=== PATIENT | female | born 1995 | race American Indian/Alaskan Native ===

== ENCOUNTER 2017-01-18 08:07 | Emergency (ER) | payer MEDICAID ==
[2017-01-18 08:52] LABS: Basophils % (Auto) 0.3 % (0.0-1.8); Eosinophils % (Auto) 2.4 % (0.0-4.3); Hematocrit 39.6 % (30.3-42.9); Mean Corpuscular HGB Conc 33 % (30-34); Mean Corpuscular Hemoglobin 28 pg (28-32); Mean Corpuscular Volume 86 fl (79-97); Platelet Count 348 K/mm3 (140-440); Red Blood Count 4.62 M/mm3 (3.65-5.03); Red Cell Distribution Width 12.9 % (13.2-15.2); White Blood Count 11.1 K/mm3 (4.5-11.0)
[2017-01-18 09:08] LABS: Bacteria,Urine 1+ /HPF (Negative); Bilirubin,Urine NEG (Negative); Blood,Urine NEG (Negative); Ketones,Urine NEG (Negative); Leukocyte Esterase,Urine LG (Negative); Mucus,Urine FEW /HPF; Nitrite,Urine NEG (Negative)
[2017-01-18 09:09] LABS: WBC,Urine > 182.0 /HPF (0.0-6.0)
[2017-01-18 09:15] LABS: Alanine Aminotransferase 6 units/L (7-56); Albumin 4.6 g/dL (3.9-5); Albumin/Globulin Ratio 1.3 %; Alkaline Phosphatase 34 units/L (35-129); Anion Gap 18 mmol/L; BUN/Creatinine Ratio 18.75; Blood Urea Nitrogen 15 mg/dL (7-17); Calcium 9.4 mg/dL (8.4-10.2); Carbon Dioxide 23 mmol/L (22-30); Chloride 102.2 mmol/L (98-107); Glucose 93 mg/dL (65-100); Lipase 15 units/L (13-60); Potassium 4.4 mmol/L (3.6-5.0); Sodium 139 mmol/L (137-145); Total Protein 8.1 g/dL (6.3-8.2)
--- NOTE | 2017-01-18 11:59 | Emergency Department Report ---
ED Abdominal Pain HPI - General Chief Complaint: Abdominal Pain Stated Complaint: CYST ON BUTTOCKS Time Seen by Provider: 01/18/17 11:27 Source: patient Mode of arrival: Ambulatory Limitations: No Limitations - History of Present Illness Initial Comments: 21-year-old female who presents to emergency department with complaint of abdominal pain especially with bowel movements. She has some rectal pain and feels that there is a cyst around her anus. Denies fever chills nausea vomiting. She strains when attempting to have bowel movements. MD Complaint: other (rectal pain) -: Gradual Radiation: none Migration to: no migration Consistency: constant Improves With: nothing Worsens With: nothing, bowel movement Associated Symptoms: denies: nausea, vomiting, diarrhea, fever, constipation, dysuria, hematemesis, melena - Related Data Previous Rx's Medication Instructions Recorded Last Taken Type Polymyxin B Sulf/Trimethoprim 1 drop OP Q4H #1 bottle 04/13/13 Unknown Rx [Polytrim Eye Drops 67324faqwj/0.1%] Fluconazole [Diflucan] 150 mg PO ONCE #3 tablet 04/26/13 Unknown Rx Azithromycin(Nf)1% Ophth Soln 1 drops INTRAOCULA QDAY #1 bottle 10/14/13 Unknown Rx [Azasite 1% Ophth Soln] Gentamicin 0.3% Ophth Soln 1 drops OP Q4H #1 bottle 04/11/15 Unknown Rx Ciprofloxacin HCl [Ciprofloxacin 500 mg PO BID #6 tablet 01/18/17 Unknown Rx TAB] Hydrocortisone [Anucort-HC SUPPOS] 25 mg RC BID #30 supp.rect 01/18/17 Unknown Rx Allergies Allergy/AdvReac Type Severity Reaction Status Date / Time Penicillins Allergy Rash Verified 04/13/13 16:46 ED Review of Systems ROS: Stated complaint: CYST ON BUTTOCKS Other details as noted in HPI Constitutional: see HPI. denies: fever, malaise Respiratory: denies: cough, orthopnea Gastrointestinal: other (rectal pain). denies: abdominal pain, nausea Genitourinary: frequency. denies: urgency, dysuria, hematuria ED Past Medical Hx - Past Medical History Previous Medical History?: No - Surgical History Past Surgical History?: No - Family History Family history: no significant - Social History Smoking Status: Never Smoker Substance Use Type: Alcohol - Medications Home Medications: Home Medications Medication Instructions Recorded Confirmed Last Taken Type Polymyxin B Sulf/Trimethoprim 1 drop OP Q4H #1 bottle 04/13/13 Unknown Rx [Polytrim Eye Drops 93484jlmnt/0.1%] Fluconazole [Diflucan] 150 mg PO ONCE #3 tablet 04/26/13 Unknown Rx Azithromycin(Nf)1% Ophth Soln 1 drops INTRAOCULA QDAY #1 bottle 10/14/13 Unknown Rx [Azasite 1% Ophth Soln] Gentamicin 0.3% Ophth Soln 1 drops OP Q4H #1 bottle 04/11/15 Unknown Rx Ciprofloxacin HCl [Ciprofloxacin 500 mg PO BID #6 tablet 01/18/17 Unknown Rx TAB] Hydrocortisone [Anucort-HC SUPPOS] 25 mg RC BID #30 supp.rect 01/18/17 Unknown Rx ED Physical Exam - General Limitations: No Limitations General appearance: alert, in no apparent distress - Head Head exam: Present: atraumatic, normocephalic - Eye Eye exam: Present: normal appearance. Absent: scleral icterus, conjunctival injection - ENT ENT exam: Present: mucous membranes moist - Neck Neck exam: Absent: lymphadenopathy, thyromegaly - GI/Abdominal GI/Abdominal exam: Present: soft, other (Two sizable hemorrhoids). Absent: distended, tenderness, guarding - Extremities Exam Extremities exam: Present: normal inspection - Back Exam Back exam: Absent: CVA tenderness (R), CVA tenderness (L) - Neurological Exam Neurological exam: Present: alert, oriented X3 ED Course Vital Signs 01/18/17 08:16 Temperature 98.5 F Pulse Rate 114 H Blood Pressure 139/89 O2 Sat by Pulse 100 Oximetry ED Medical Decision Making - Lab Data Result diagrams: 01/18/17 08:38 01/18/17 08:38 Laboratory Results - last 24 hr 01/18/17 01/18/17 01/18/17 08:38 08:38 08:40 WBC 11.1 H RBC 4.62 Hgb 13.0 Hct 39.6 MCV 86 MCH 28 MCHC 33 RDW 12.9 L Plt Count 348 Lymph % (Auto) 28.4 [place] % (Auto) 7.7 H Eos % (Auto) 2.4 Baso % (Auto) 0.3 Lymph # 3.1 [place] # 0.9 H Eos # 0.3 Baso # 0.0 Seg Neutrophils % 61.2 Seg Neutrophils # 6.8 Sodium 139 Potassium 4.4 Chloride 102.2 Carbon Dioxide 23 Anion Gap 18 BUN 15 Creatinine 0.8 Estimated GFR > 60 BUN/Creatinine Ratio 18.75 Glucose 93 Calcium 9.4 Total Bilirubin 0.50 AST 10 ALT 6 L Alkaline Phosphatase 34 L Total Protein 8.1 Albumin 4.6 Albumin/Globulin Ratio 1.3 Lipase 15 Urine Color Yellow Urine Turbidity Cloudy Urine pH 6.0 Ur Specific [place] 1.024 Urine Protein 30 mg/dl Urine Glucose (UA) Neg Urine Ketones Neg Urine Blood Neg Urine Nitrite Neg Urine Bilirubin Neg Urine Urobilinogen 2.0 Ur Leukocyte Esterase Lg Urine WBC (Auto) > 182.0 H Urine RBC (Auto) 10.0 U Epithel Cells (Auto) 14.0 H Urine Bacteria (Auto) 1+ Urine WBC Clumps 1+ Ur Transition Epith Cell 12 Urine Mucus Few - Medical Decision Making Patient has a hemorrhoid that is fairly sizable. Plan plan to discharge her with some steroid cream. In addition she does have a urinary tract infection which I'll treat with oral antibiotics for 3 days. Labs are otherwise unremarkable and her exam is unremarkable. Portions of this chart were dictated with dictation software. There may be dictation errors contained within this note. Critical care attestation.: If time is entered above; I have spent that time in minutes in the direct care of this critically ill patient, excluding procedure time. ED Disposition Clinical Impression: UTI (urinary tract infection), Hemorrhoid Disposition: DC-01 TO HOME OR SELFCARE Is pt being admited?: No Condition: Stable Instructions: Abdominal Pain (ED) Prescriptions: Ciprofloxacin HCl [Ciprofloxacin TAB] 500 mg PO BID #6 tablet Hydrocortisone [Anucort-HC SUPPOS] 25 mg RC BID #30 supp.rect Referrals: PRIMARY CARE, [Primary Care Provider] - 3-5 Days
[2017-01-18 13:56] VITALS: BP 130/72
== END 2017-01-18 12:15 | disposition home or self-care (01) ==
LOC: ED 08:07
DX: N39.0 Urinary tract infection, site not specified (principal); K64.9 Unspecified hemorrhoids
CPT/HCPCS: 36415; 80053; 81001; 81025; 83690; 85025; 99283

== ENCOUNTER 2017-07-23 08:25 | Emergency (ER) | payer MEDICAID ==
[2017-07-23 09:03] VITALS: BP 103/68
[2017-07-23 12:20] LABS: Bacteria,Urine 1+ /HPF (Negative); Bilirubin,Urine NEG (Negative); Blood,Urine NEG (Negative); Color,Urine Amber (Yellow); Mucus,Urine 3+ /HPF
[2017-07-23 12:28] LABS: HCG Qualitative,Urine Negative (Negative)
[2017-07-23] MEDS ORDERED: ZOFRAN IV ONE ×2 (12:30→12:57)
[2017-07-23] MEDS ORDERED: PEPCID IV ONE (12:30)
--- NOTE | 2017-07-23 12:40 | Emergency Department Report ---
Blank Doc - Documentation Documentation: Patient is a 22-year-old female who is presenting with nausea and vomiting for the past several days patient states she is unable to keep anything down. Patient also complains of low back discomfort as well as some mild dysuria. On evaluation the patient's urinalysis there are ketones therefore patient will be moved to the treatment room for IV fluids and further assessment by MLP
--- NOTE | 2017-07-23 12:54 | Emergency Department Report ---
ED N/V/D HPI - General Chief complaint: Upper Respiratory Infection Stated complaint: FLU SYMTOMS, EDEMA IN FEET Time Seen by Provider: 07/23/17 12:08 Source: patient Mode of arrival: Ambulatory Limitations: No Limitations - History of Present Illness Initial comments: Patient is a 28-year-old [place] female who is presenting with new onset headaches for the past several days. Patient states that headache is right frontal and she does have tenderness however she denies any congestion and cough cold congestion or flulike symptoms. Patient states that the pain radiates to the right ear and she even has some discomfort in her right leg this morning says it feels as though it's going to sleep. Denies any use of alcohol or any recent new food that would cause nausea and vomiting. Denies any vaginal discharge or bleeding. Last menstrual period is 07/01/2017. Denies any fever or chills. Pain is 8 out of 10 to back or some movement better with rest. Denies any abdominal pain. MD complaint: nausea, vomiting, other (back pain) Onset/Timin -: days(s) Description of Vomiting: food contents Description of Diarrhea: other (none) Associated Abdominal Pain: No Context: other (unknown) Associated Symptoms: loss of appetite, nausea/vomiting, dysuria, other (back pain). denies: myalgias, chest pain, cough, diaphoresis, fever/chills, headaches, malaise, rash, shortness of breath, syncope, weakness - Related Data Previous Rx's Medication Instructions Recorded Last Taken Type Polymyxin B Sulf/Trimethoprim 1 drop OP Q4H #1 bottle 04/13/13 Unknown Rx [Polytrim Eye Drops 20248ilole/0.1%] Fluconazole [Diflucan] 150 mg PO ONCE #3 tablet 04/26/13 Unknown Rx Azithromycin(Nf)1% Ophth Soln 1 drops INTRAOCULA QDAY #1 bottle 10/14/13 Unknown Rx [Azasite 1% Ophth Soln] Gentamicin 0.3% Ophth Soln 1 drops OP Q4H #1 bottle 04/11/15 Unknown Rx Ciprofloxacin HCl [Ciprofloxacin 500 mg PO BID #6 tablet 01/18/17 Unknown Rx TAB] Hydrocortisone [Anucort-HC SUPPOS] 25 mg RC BID #30 supp.rect 01/18/17 Unknown Rx Promethazine [Phenergan TAB] 25 mg PO Q8HR PRN #12 tab 07/23/17 Unknown Rx Sulfamethoxazole/Trimethoprim 1 each PO BID 3 Days #6 tablet 07/23/17 Unknown Rx [Bactrim DS TAB] Allergies Allergy/AdvReac Type Severity Reaction Status Date / Time Penicillins Allergy Rash Verified 04/13/13 16:46 ED Review of Systems ROS: Stated complaint: FLU SYMTOMS, EDEMA IN FEET Other details as noted in HPI Comment: All other systems reviewed and negative Constitutional: no symptoms reported Eyes: denies: eye pain, eye discharge ENT: denies: ear pain, throat pain, congestion Respiratory: no symptoms reported Cardiovascular: edema. denies: chest pain, palpitations, dyspnea on exertion, syncope, paroxysmal nocturnal dyspnea Gastrointestinal: nausea, vomiting. denies: abdominal pain, diarrhea, constipation, hematemesis, melena, hematochezia Genitourinary: dysuria. denies: urgency, frequency, hematuria, discharge, abnormal menses, dyspareunia Musculoskeletal: back pain. denies: joint swelling, arthralgia, myalgia Skin: denies: rash Neurological: denies: headache, weakness, numbness, paresthesias, confusion, abnormal gait, vertigo ED Past Medical Hx - Past Medical History Previous Medical History?: No - Surgical History Past Surgical History?: No - Family History Family history: no significant - Social History Smoking Status: Never Smoker Substance Use Type: None - Medications Home Medications: Home Medications Medication Instructions Recorded Confirmed Last Taken Type Polymyxin B Sulf/Trimethoprim 1 drop OP Q4H #1 bottle 04/13/13 Unknown Rx [Polytrim Eye Drops 44394uxmnj/0.1%] Fluconazole [Diflucan] 150 mg PO ONCE #3 tablet 04/26/13 Unknown Rx Azithromycin(Nf)1% Ophth Soln 1 drops INTRAOCULA QDAY #1 bottle 10/14/13 Unknown Rx [Azasite 1% Ophth Soln] Gentamicin 0.3% Ophth Soln 1 drops OP Q4H #1 bottle 04/11/15 Unknown Rx Ciprofloxacin HCl [Ciprofloxacin 500 mg PO BID #6 tablet 01/18/17 Unknown Rx TAB] Hydrocortisone [Anucort-HC SUPPOS] 25 mg RC BID #30 supp.rect 01/18/17 Unknown Rx Promethazine [Phenergan TAB] 25 mg PO Q8HR PRN #12 tab 02/14/18 Unknown Rx Sulfamethoxazole/Trimethoprim 1 each PO BID 3 Days #6 tablet 07/23/17 Unknown Rx [Bactrim DS TAB] ED Physical Exam - General Limitations: No Limitations General appearance: alert, in no apparent distress - Head Head exam: Present: atraumatic, normocephalic, normal inspection - Eye Eye exam: Present: normal appearance, PERRL, EOMI. Absent: nystagmus, periorbital swelling, periorbital tenderness Pupils: Present: normal accommodation - ENT ENT exam: Present: normal exam, normal orophraynx, mucous membranes moist, TM's normal bilaterally, normal external ear exam - Neck Neck exam: Present: normal inspection, full ROM, other (no C-spine tenderness). Absent: tenderness, meningismus, lymphadenopathy, thyromegaly - Respiratory Respiratory exam: Present: normal lung sounds bilaterally. Absent: respiratory distress, chest wall tenderness, accessory muscle use - Cardiovascular Cardiovascular Exam: Present: normal rhythm, tachycardia, normal heart sounds. Absent: systolic murmur, diastolic murmur - GI/Abdominal GI/Abdominal exam: Present: soft, normal bowel sounds. Absent: distended, tenderness, guarding, rebound, rigid, mass, bruit, pulsatile mass, hernia - Extremities Exam Extremities exam: Present: normal inspection, full ROM, normal capillary refill , other (no clubbing, cyanosis or edema. +2 pulses. Extremities no neurovascular compromise.). Absent: tenderness, pedal edema, joint swelling, calf tenderness - Back Exam Back exam: Present: normal inspection, full ROM, other (ambulance without any difficulties). Absent: tenderness, CVA tenderness (R), CVA tenderness (L), muscle spasm, paraspinal tenderness, vertebral tenderness, rash noted - Neurological Exam Neurological exam: Present: alert, oriented X3, normal gait, reflexes normal. Absent: motor sensory deficit - Psychiatric Psychiatric exam: Present: normal affect, normal mood - Skin Skin exam: Present: warm, dry, intact, normal color. Absent: rash ED Course Vital Signs 07/23/17 07/23/17 08:59 13:54 Temperature 98.4 F Pulse Rate 116 H 100 H Respiratory 20 Rate Blood Pressure 103/68 O2 Sat by Pulse 98 Oximetry Vital Signs 07/23/17 07/23/17 08:59 13:54 Temperature 98.4 F Pulse Rate 116 H 100 H Respiratory 20 Rate Blood Pressure 103/68 O2 Sat by Pulse 98 Oximetry - Reevaluation(s) Reevaluation #1: 07/23/17 13:55 Patient received 2 L of IV fluid emergency room along with 8 mg of Zofran IV and 4 mg increments. She says she felt better able to tolerate oral liquids. ED Medical Decision Making - Lab Data Lab Results 07/23/17 Range/Units 11:05 Urine Color Deb (Yellow) Urine Turbidity Clear (Clear) Urine pH 5.0 (5.0-7.0) Ur Specific [place] 1.033 H (1.003-1.030) Urine Protein 30 mg/dl (Negative) mg/dL Urine Glucose (UA) Neg (Negative) mg/dL Urine Ketones 80 (Negative) mg/dL Urine Blood Neg (Negative) Urine Nitrite Neg (Negative) Urine Bilirubin Neg (Negative) Urine Urobilinogen 2.0 (<2.0) mg/dL Ur Leukocyte Esterase Neg (Negative) Urine WBC (Auto) 2.0 (0.0-6.0) /HPF Urine RBC (Auto) 4.0 (0.0-6.0) /HPF U Epithel Cells (Auto) 15.0 H (0-13.0) /HPF Urine Bacteria (Auto) 1+ (Negative) /HPF Urine Mucus 3+ /HPF Urine HCG, Qual Negative (Negative) Urine culture sent. - Medical Decision Making ED course: Pt here for nausea and vomiting in and flulike symptoms. She does not have a fever. Denies any coughing or respiratory difficulties. Patient urinalysis showed that she had moderate dehydration and she had 1+ bacteria complained of dysuria therefore urine culture sent and pending. Patient will be treated for bacteria and cultures are pending. I discussed diagnosis and treatment plan the patient and she voiced understanding. Patient and tolerated 2 L of IV fluid, Zofran 8 mg IV total. Patient says she felt better and she is tolerating fluids well. test is negative. Patient discharged home in stable condition with prescription for Phenergan and Bactrim DS. Critical care attestation.: If time is entered above; I have spent that time in minutes in the direct care of this critically ill patient, excluding procedure time. ED Disposition Clinical Impression: Dehydration, Dysuria, Bacteriuria Nausea and vomiting Qualifiers: Vomiting type: unspecified Vomiting Intractability: non-intractable Qualified Code(s): R11.2 - Nausea with vomiting, unspecified Disposition: DC-01 TO HOME OR SELFCARE Is pt being admited?: No Does the pt Need Aspirin: No Condition: Stable Instructions: Acute Nausea and Vomiting (ED), Dehydration (ED), Dysuria (ED) Additional Instructions: Please increase her fluid intake to 2-3 L of water and cranberry juice daily See primary care physician in 2 days. If you do not have a primary care physician follow-up with [facility] Please see Bactrim for urinary burning and pain bacteria in the urine Take Phenergan for nausea but please R for operating heavy machinery while taking this medication as a cause drowsiness Prescriptions: Promethazine [Phenergan TAB] 25 mg PO Q8HR PRN #12 tab PRN Reason: Nausea Sulfamethoxazole/Trimethoprim [Bactrim DS TAB] 1 each PO BID 3 Days #6 tablet Referrals: PRIMARY CAREMD [Primary Care Provider] - 07/25/17 [facility] [Outside] - 07/25/17 Forms: Work/School Release Form(ED)
[2017-07-23] MEDS ORDERED: NACL 0.9% 1000 ML 1,000 ML IV ONE (12:59)
[2017-07-23] MEDS ORDERED: D5NS 1,000 ML IV SCH (13:00)
== END 2017-07-23 14:38 | disposition home or self-care (01) ==
LOC: ED 08:25
DX: E86.0 Dehydration (principal); R82.71 Bacteriuria; R11.2 Nausea with vomiting, unspecified; R30.0 Dysuria
CPT/HCPCS: 81001; 81025; 87086; 96361; 96374; 96375; 96376; 99283; J2405; J7030

== ENCOUNTER 2018-02-03 11:16 | Emergency (ER) | payer MEDICAID ==
[2018-02-03 11:24] VITALS: BP 135/90
[2018-02-03 12:33] LABS: Bilirubin,Urine NEG (Negative); Blood,Urine MOD (Negative); Color,Urine Yellow (Yellow); Protein,Urine <15 mg/dL mg/dL (Negative)
[2018-02-03 13:04] LABS: HCG Qualitative,Urine Negative (Negative)
--- NOTE | 2018-02-03 17:19 | Emergency Department Report ---
ED General Adult HPI - General Chief complaint: Urogenital-Female Stated complaint: BLOOD IN URINE Time Seen by Provider: 02/03/18 17:03 Source: patient Mode of arrival: Ambulatory Limitations: No Limitations - History of Present Illness Initial comments: She presents to emergency department with a chief complaint of burning with urination for the last 2 months. Patient states recently she noticed that she' s had blood in her urine as well. Patient denies any vaginal discharge or concern for STDs. Patient has no other complaints -: Gradual Location: pelvis Radiation: non-radiation Severity scale (0 -10): 2 Quality: burning Consistency: constant Improves with: none Worsens with: none Associated Symptoms: denies other symptoms Treatments Prior to Arrival: none - Related Data Previous Rx's Medication Instructions Recorded Last Taken Type Polymyxin B Sulf/Trimethoprim 1 drop OP Q4H #1 bottle 04/13/13 Unknown Rx [Polytrim Eye Drops 41574fturw/0.1%] Fluconazole [Diflucan] 150 mg PO ONCE #3 tablet 04/26/13 Unknown Rx Azithromycin(Nf)1% Ophth Soln 1 drops INTRAOCULA QDAY #1 bottle 10/14/13 Unknown Rx [Azasite 1% Ophth Soln] Gentamicin 0.3% Ophth Soln 1 drops OP Q4H #1 bottle 04/11/15 Unknown Rx Ciprofloxacin HCl [Ciprofloxacin 500 mg PO BID #6 tablet 01/18/17 Unknown Rx TAB] Hydrocortisone [Anucort-HC SUPPOS] 25 mg RC BID #30 supp.rect 01/18/17 Unknown Rx Promethazine [Phenergan TAB] 25 mg PO Q8HR PRN #12 tab 07/23/17 Unknown Rx Sulfamethoxazole/Trimethoprim 1 each PO BID 3 Days #6 tablet 07/23/17 Unknown Rx [Bactrim DS TAB] Phenazopyridine [Pyridium] 200 mg PO BID #6 tab 02/03/18 Unknown Rx Sulfamethoxazole/Trimethoprim 1 each PO BID #14 tablet 02/03/18 Unknown Rx [Bactrim DS TAB] Allergies Allergy/AdvReac Type Severity Reaction Status Date / Time Penicillins Allergy Rash Verified 02/03/18 11:23 ED Review of Systems ROS: Stated complaint: BLOOD IN URINE Other details as noted in HPI Comment: All other systems reviewed and negative Constitutional: denies: chills, fever Eyes: denies: eye pain, eye discharge, vision change ENT: denies: ear pain, throat pain Respiratory: denies: cough, shortness of breath, wheezing Cardiovascular: denies: chest pain, palpitations Endocrine: no symptoms reported Gastrointestinal: denies: abdominal pain, nausea, diarrhea Genitourinary: dysuria. denies: urgency, discharge Musculoskeletal: denies: back pain, joint swelling, arthralgia Skin: denies: rash, lesions Neurological: denies: headache, weakness, paresthesias Psychiatric: denies: anxiety, depression Hematological/Lymphatic: denies: easy bleeding, easy bruising ED Past Medical Hx - Past Medical History Previous Medical History?: No - Surgical History Past Surgical History?: No - Social History Smoking Status: Never Smoker Substance Use Type: None - Medications Home Medications: Home Medications Medication Instructions Recorded Confirmed Last Taken Type Polymyxin B Sulf/Trimethoprim 1 drop OP Q4H #1 bottle 04/13/13 Unknown Rx [Polytrim Eye Drops 63587ubjda/0.1%] Fluconazole [Diflucan] 150 mg PO ONCE #3 tablet 04/26/13 Unknown Rx Azithromycin(Nf)1% Ophth Soln 1 drops INTRAOCULA QDAY #1 bottle 10/14/13 Unknown Rx [Azasite 1% Ophth Soln] Gentamicin 0.3% Ophth Soln 1 drops OP Q4H #1 bottle 04/11/15 Unknown Rx Ciprofloxacin HCl [Ciprofloxacin 500 mg PO BID #6 tablet 01/18/17 Unknown Rx TAB] Hydrocortisone [Anucort-HC SUPPOS] 25 mg RC BID #30 supp.rect 01/18/17 Unknown Rx Promethazine [Phenergan TAB] 25 mg PO Q8HR PRN #12 tab 07/23/17 Unknown Rx Sulfamethoxazole/Trimethoprim 1 each PO BID 3 Days #6 tablet 07/23/17 Unknown Rx [Bactrim DS TAB] Phenazopyridine [Pyridium] 200 mg PO BID #6 tab 02/03/18 Unknown Rx Sulfamethoxazole/Trimethoprim 1 each PO BID #14 tablet 02/03/18 Unknown Rx [Bactrim DS TAB] ED Physical Exam - General Limitations: No Limitations General appearance: alert, in no apparent distress - Head Head exam: Present: atraumatic, normocephalic - Eye Eye exam: Present: normal appearance - ENT ENT exam: Present: mucous membranes moist - Neck Neck exam: Present: normal inspection - Respiratory Respiratory exam: Present: normal lung sounds bilaterally. Absent: respiratory distress, wheezes, rales, rhonchi - Cardiovascular Cardiovascular Exam: Present: regular rate, normal rhythm. Absent: systolic murmur, diastolic murmur, rubs, gallop - GI/Abdominal GI/Abdominal exam: Present: soft, normal bowel sounds. Absent: distended, tenderness - Extremities Exam Extremities exam: Present: normal inspection - Back Exam Back exam: Present: normal inspection - Neurological Exam Neurological exam: Present: alert, oriented X3, CN II-XII intact. Absent: motor sensory deficit - Psychiatric Psychiatric exam: Present: normal affect, normal mood - Skin Skin exam: Present: warm, dry, intact, normal color. Absent: rash ED Course Vital Signs 02/03/18 11:23 Temperature 98.7 F Pulse Rate 68 Respiratory 16 Rate Blood Pressure 135/90 O2 Sat by Pulse 100 Oximetry ED Medical Decision Making - Medical Decision Making Stress results with patient and her mother Critical care attestation.: If time is entered above; I have spent that time in minutes in the direct care of this critically ill patient, excluding procedure time. ED Disposition Clinical Impression: UTI (urinary tract infection) Disposition: - TO HOME OR SELFCARE Is pt being admited?: No Does the pt Need Aspirin: No Condition: Stable Instructions: Urinary Tract Infection in Women (ED) Prescriptions: Phenazopyridine [Pyridium] 200 mg PO BID #6 tab Sulfamethoxazole/Trimethoprim [Bactrim DS TAB] 1 each PO BID #14 tablet Referrals: PRIMARY CARE, [Primary Care Provider] - 3-5 Days [facility] [Outside] - 3-5 Days Time of Disposition: 17:19
== END 2018-02-03 17:48 | disposition home or self-care (01) ==
LOC: ED 11:16
DX: N39.0 Urinary tract infection, site not specified (principal); Z88.0 Allergy status to penicillin
CPT/HCPCS: 81001; 81025; 99283

== ENCOUNTER 2018-12-12 16:25 | Emergency (ER) | payer MEDICAID ==
--- NOTE | 2018-12-12 16:50 | Event Note ---
ED Screening Note Date of service: 12/12/18 Time: 16:47 ED Screening Note: This is a 23 y.o. F. that presents with nausea and vomiting x 1 month. LMP 10/28/2018, G0 This initial assessment/diagnostic orders/clinical plan/treatment(s) is/are subject to change based on patients health status, clinical progression and re- assessment by fellow clinical providers in the ED. Further treatment and workup at subsequent clinical providers discretion. Patient/guardian urged not to elope from the ED as their condition may be serious if not clinically assessed and managed. Initial orders include: labs acc for further evaluation.
[2018-12-12 17:37] LABS: Bacteria,Urine 1+ /HPF (Negative); Bilirubin,Urine NEG (Negative); Blood,Urine NEG (Negative); Color,Urine Yellow (Yellow); HCG Qualitative,Urine Positive (Negative); Mucus,Urine FEW /HPF; Urobilinogen,Urine < 2.0 mg/dL (<2.0)
[2018-12-12] MEDS ORDERED: ZOFRAN IV ONE (19:04)
[2018-12-12] MEDS ORDERED: NACL 0.9% 1000 ML 1,000 ML IV ONE (19:04)
--- NOTE | 2018-12-12 19:06 | Emergency Department Report ---
ED N/V/D HPI - General Chief complaint: Nausea/Vomiting/Diarrhea Stated complaint: POSS Time Seen by Provider: 12/12/18 16:46 Source: patient Mode of arrival: Ambulatory Limitations: No Limitations - History of Present Illness Initial comments: This is 23-year-old female here report that she is having nausea and vomiting since last month. She denies any abdominal pain and last menstrual period was in October 2018. She is here wanting today she is . She says she is unable to keep down any liquids. Denies any vaginal bleeding or discharge. Denies any fever or chills or urinary burning, frequency or urgency. Denies any back pain. MD complaint: nausea, vomiting Onset/Timin -: month(s) Description of Vomiting: food contents Associated Abdominal Pain: No Pain Scale: 0 Context: other (reports possible ) Associated Symptoms: loss of appetite, nausea/vomiting. denies: myalgias, chest pain, cough, diaphoresis, fever/chills, headaches, malaise, rash, dysuria, shortness of breath, syncope, weakness - Related Data Previous Rx's Medication Instructions Recorded Last Taken Type Polymyxin B Sulf/Trimethoprim 1 drop OP Q4H #1 bottle 04/13/13 Unknown Rx [Polytrim Eye Drops 52142xamml/0.1%] Fluconazole [Diflucan] 150 mg PO ONCE #3 tablet 04/26/13 Unknown Rx Azithromycin(Nf)1% Ophth Soln 1 drops INTRAOCULA QDAY #1 bottle 10/14/13 Unknown Rx [Azasite 1% Ophth Soln] Gentamicin 0.3% Ophth Soln 1 drops OP Q4H #1 bottle 04/11/15 Unknown Rx Ciprofloxacin HCl [Ciprofloxacin 500 mg PO BID #6 tablet 01/18/17 Unknown Rx TAB] Hydrocortisone [Anucort-HC SUPPOS] 25 mg RC BID #30 supp.rect 01/18/17 Unknown Rx Promethazine [Phenergan TAB] 25 mg PO Q8HR PRN #12 tab 07/23/17 Unknown Rx Sulfamethoxazole/Trimethoprim 1 each PO BID 3 Days #6 tablet 07/23/17 Unknown Rx [Bactrim DS TAB] Phenazopyridine [Pyridium] 200 mg PO BID #6 tab 02/03/18 Unknown Rx Sulfamethoxazole/Trimethoprim 1 each PO BID #14 tablet 02/03/18 Unknown Rx [Bactrim DS TAB] Nitrofurantoin Wallace/M-Cryst 100 mg PO Q12HR 7 Days #14 capsule 12/12/18 Unknown Rx [Macrobid CAP] Vit-Fe Fumar-FA [ 1 tab PO QDAY 30 Days #30 tablet 12/12/18 Unknown Rx Vitamin] Allergies Allergy/AdvReac Type Severity Reaction Status Date / Time Penicillins Allergy Rash Verified 12/12/18 16:34 ED Review of Systems ROS: Stated complaint: POSS Other details as noted in HPI Constitutional: denies: chills, fever ENT: denies: throat pain, congestion Respiratory: denies: cough, shortness of breath, wheezing Cardiovascular: denies: chest pain, palpitations, dyspnea on exertion Gastrointestinal: nausea, vomiting. denies: abdominal pain, diarrhea, constipation, hematemesis, melena, hematochezia Genitourinary: abnormal menses. denies: urgency, dysuria, frequency, hematuria, discharge, dyspareunia Skin: denies: rash Neurological: denies: headache, weakness, abnormal gait ED Past Medical Hx - Past Medical History Previous Medical History?: No - Surgical History Past Surgical History?: No - Family History Family history: no significant - Social History Smoking Status: Never Smoker Substance Use Type: None - Medications Home Medications: Home Medications Medication Instructions Recorded Confirmed Last Taken Type Polymyxin B Sulf/Trimethoprim 1 drop OP Q4H #1 bottle 04/13/13 Unknown Rx [Polytrim Eye Drops 75391bhsmf/0.1%] Fluconazole [Diflucan] 150 mg PO ONCE #3 tablet 04/26/13 Unknown Rx Azithromycin(Nf)1% Ophth Soln 1 drops INTRAOCULA QDAY #1 bottle 10/14/13 Unknown Rx [Azasite 1% Ophth Soln] Gentamicin 0.3% Ophth Soln 1 drops OP Q4H #1 bottle 04/11/15 Unknown Rx Ciprofloxacin HCl [Ciprofloxacin 500 mg PO BID #6 tablet 01/18/17 Unknown Rx TAB] Hydrocortisone [Anucort-HC SUPPOS] 25 mg RC BID #30 supp.rect 01/18/17 Unknown Rx Promethazine [Phenergan TAB] 25 mg PO Q8HR PRN #12 tab 07/23/17 Unknown Rx Sulfamethoxazole/Trimethoprim 1 each PO BID 3 Days #6 tablet 07/23/17 Unknown Rx [Bactrim DS TAB] Phenazopyridine [Pyridium] 200 mg PO BID #6 tab 02/03/18 Unknown Rx Sulfamethoxazole/Trimethoprim 1 each PO BID #14 tablet 02/03/18 Unknown Rx [Bactrim DS TAB] Nitrofurantoin Wallace/M-Cryst 100 mg PO Q12HR 7 Days #14 capsule 12/12/18 Unknown Rx [Macrobid CAP] Vit-Fe Fumar-FA [ 1 tab PO QDAY 30 Days #30 tablet 12/12/18 Unknown Rx Vitamin] ED Physical Exam - General Limitations: No Limitations General appearance: alert, in no apparent distress - Head Head exam: Present: atraumatic, normocephalic - Eye Eye exam: Present: normal appearance, PERRL, EOMI - ENT ENT exam: Present: normal exam, mucous membranes dry, TM's normal bilaterally - Neck Neck exam: Present: normal inspection, full ROM - Respiratory Respiratory exam: Present: normal lung sounds bilaterally. Absent: respiratory distress - Cardiovascular Cardiovascular Exam: Present: regular rate, normal rhythm, normal heart sounds - GI/Abdominal GI/Abdominal exam: Present: soft, normal bowel sounds. Absent: distended, tenderness, guarding, rebound, rigid - Extremities Exam Extremities exam: Present: normal inspection, full ROM, other (No cce. + 2 pulses in all extremities, no neurovascular compromise). Absent: pedal edema - Back Exam Back exam: Present: normal inspection, full ROM - Neurological Exam Neurological exam: Present: alert, oriented X3, normal gait - Psychiatric Psychiatric exam: Present: normal affect, normal mood - Skin Skin exam: Present: warm, dry, intact, normal color. Absent: rash ED Course Vital Signs 12/12/18 16:38 Temperature 98.3 F Pulse Rate 87 Respiratory 18 Rate Blood Pressure 137/74 O2 Sat by Pulse 95 Oximetry - Reevaluation(s) Reevaluation #1: 12/12/18 21:38 patient urinalysis positive for urinary tract infection, dehydration, positive . Patient was given 1 L normal saline in emergency room along with 4 mg of Zofran IV and her nausea is relieved. She is able to tolerate by mouth fluids. She is updated on her laboratory results. ED Medical Decision Making - Lab Data Lab Results 12/12/18 Range/Units 17:15 Urine Color Yellow (Yellow) Urine Turbidity Slightly-cloudy (Clear) Urine pH 6.0 (5.0-7.0) Ur Specific Gonzales 1.026 (1.003-1.030) Urine Protein 30 mg/dl (Negative) mg/dL Urine Glucose (UA) Neg (Negative) mg/dL Urine Ketones 80 (Negative) mg/dL Urine Blood Neg (Negative) Urine Nitrite Neg (Negative) Urine Bilirubin Neg (Negative) Urine Urobilinogen < 2.0 (<2.0) mg/dL Ur Leukocyte Esterase Lg (Negative) Urine WBC (Auto) 10.0 H (0.0-6.0) /HPF Urine RBC (Auto) 5.0 (0.0-6.0) /HPF U Epithel Cells (Auto) 17.0 H (0-13.0) /HPF Urine Bacteria (Auto) 1+ (Negative) /HPF Urine Mucus Few /HPF Urine HCG, Qual Positive A (Negative) Urine culture pending - Differential Diagnosis enteritis, nausea and vomiting in , UTI Critical care attestation.: If time is entered above; I have spent that time in minutes in the direct care of this critically ill patient, excluding procedure time. ED Disposition Clinical Impression: Nausea and vomiting during , Dehydration Acute cystitis during Qualifiers: Trimester: unspecified trimester Qualified Code(s): O23.10 - Infections of bladder in , unspecified trimester Disposition: DC-01 TO HOME OR SELFCARE Is pt being admited?: No Does the pt Need Aspirin: No Condition: Stable Instructions: Urinary Tract Infection in Women (ED), Acute Nausea and Vomiting (ED), Dehydration (ED), (ED) Additional Instructions: Please follow up with [facility] in 2 days for care. Take vitamin as prescribed Increase her fluid intake Take Macrobid for urinary tract infection If you condition worsens to include abdominal pain, fever or chills, continue nausea and vomiting, vaginal bleeding, return to the emergency room Prescriptions: Nitrofurantoin Wallace/M-Cryst [Macrobid CAP] 100 mg PO Q12HR 7 Days #14 capsule Vit-Fe Fumar-FA [ Vitamin] 1 tab PO QDAY 30 Days #30 tablet Referrals: [facility] [Provider Group] - 12/14/18 [facility]MI[facility] BLAYNENEWHALL MD KARINA [Primary Care Provider] - 12/14/18 Forms: Work/School Release Form(ED)
[2018-12-12 21:58] VITALS: BP 115/68
== END 2018-12-12 21:57 | disposition home or self-care (01) ==
LOC: ED 16:25
DX: O23.11 Infections of bladder in pregnancy, first trimester (principal); O26.891 Other specified pregnancy related conditions, first trimester; E86.0 Dehydration; Z3A.00 Weeks of gestation of pregnancy not specified; Z79.899 Other long term (current) drug therapy; Z88.0 Allergy status to penicillin
CPT/HCPCS: 81001; 81025; 87086; 96361; 96374; 99283; J2405; J7030

== ENCOUNTER 2019-01-13 18:32 | Emergency (ER) | payer MEDICAID ==
--- NOTE | 2019-01-13 19:40 | Emergency Department Report ---
Blank Doc - Documentation Documentation: This is a 23-year-old female that presents with right sided facial abscess. This initial assessment/diagnostic orders/clinical plan/treatment(s) is/are subject to change based on patient's health status, clinical progression and re- assessment by fellow clinical providers in the ED. Further treatment and workup at subsequent clinical providers discretion. Patient/guardians urged not to elope from the ED as their condition may be serious if not clinically assessed and managed. Initial orders include: 1- Patient sent to [facility] for further evaluation and treatment
[2019-01-13] MEDS ORDERED: XYLOCAINE 1% MPF 5 mL INFILTRATI ONE (21:25)
[2019-01-13] MEDS ORDERED: IBUPROFEN PO ONE (21:25)
[2019-01-13] MEDS ORDERED: VIBRAMYCIN PO ONE (21:26)
[2019-01-13] MEDS ORDERED: ZOFRAN ODT PO ONE (21:26)
[2019-01-13] MEDS ORDERED: TYLENOL #3 PO ONE (21:26)
--- NOTE | 2019-01-13 23:09 | Emergency Department Report ---
- General Chief complaint: Skin/Abscess/Foreign Body Stated complaint: BOIL ON UNDER (L) EYE Time Seen by Provider: 01/13/19 19:40 Source: patient Mode of arrival: Ambulatory Limitations: No Limitations - History of Present Illness Initial comments: Patient is a 23-year-old -[place] female with a history of chronic facial acne rash presents to the ED with painful swollen fluctuant right infraorbital rash for the last 1 week, worse in the last 2 days. Patient denies fever, chills, dizziness, headache, change in vision, nausea, vomiting, neck pain, abdominal pain, sore throat, traumatic injury or chest pain and shortness of breath. MD complaint: rash (FACIAL), abscess/boil (FACIAL) -: Gradual, week(s) (1) Tetanus Up to Date: yes Location: face Severity: moderate Severity scale (0 -10): 5 Quality: burning, aching, sharp Consistency: constant Improves with: none Worsens with: none Context: none Associated symptoms: denies other symptoms Treatments Prior to Arrival: none - Related Data Previous Rx's Medication Instructions Recorded Last Taken Type Polymyxin B Sulf/Trimethoprim 1 drop OP Q4H #1 bottle 04/13/13 Unknown Rx [Polytrim Eye Drops 47556rvzvm/0.1%] Fluconazole [Diflucan] 150 mg PO ONCE #3 tablet 04/26/13 Unknown Rx Azithromycin(Nf)1% Ophth Soln 1 drops INTRAOCULA QDAY #1 bottle 10/14/13 Unknown Rx [Azasite 1% Ophth Soln] Gentamicin 0.3% Ophth Soln 1 drops OP Q4H #1 bottle 04/11/15 Unknown Rx Ciprofloxacin HCl [Ciprofloxacin 500 mg PO BID #6 tablet 01/18/17 Unknown Rx TAB] Hydrocortisone [Anucort-HC SUPPOS] 25 mg RC BID #30 supp.rect 01/18/17 Unknown Rx Promethazine [Phenergan TAB] 25 mg PO Q8HR PRN #12 tab 07/23/17 Unknown Rx Sulfamethoxazole/Trimethoprim 1 each PO BID 3 Days #6 tablet 07/23/17 Unknown Rx [Bactrim DS TAB] Phenazopyridine [Pyridium] 200 mg PO BID #6 tab 02/03/18 Unknown Rx Sulfamethoxazole/Trimethoprim 1 each PO BID #14 tablet 02/03/18 Unknown Rx [Bactrim DS TAB] Nitrofurantoin Izard/M-Cryst 100 mg PO Q12HR 7 Days #14 capsule 12/12/18 Unknown Rx [Macrobid CAP] Vit-Fe Fumar-FA [ 1 tab PO QDAY 30 Days #30 tablet 12/12/18 Unknown Rx Vitamin] Benzoyl Peroxide [Acne Medication] 1 applicator TP Q12H #30 ml 01/13/19 Unknown Rx DOXYCYCLINE Hyclate [Vibramycin 100 mg PO Q12HR #28 capsule 01/13/19 Unknown Rx CAP] Ibuprofen [Motrin] 400 mg PO Q8H PRN #20 tablet 01/13/19 Unknown Rx Allergies Allergy/AdvReac Type Severity Reaction Status Date / Time Penicillins Allergy Rash Verified 12/12/18 16:34 Abscess Boil HPI - HPI Chief Complaint: Skin/Abscess/Foreign Body Stated Complaint: BOIL ON UNDER (L) EYE Time Seen by Provider: 01/13/19 19:40 Duration: 1 Week Location: Other (FACE) History: Yes Pain, No Fever, No Purulent Drainage, No Numbness, No Foreign Body, No Previous History, No Insect Bite HPI: Patient is a 23-year-old -[place] female with a history of chronic facial acne rash presents to the ED with painful swollen fluctuant right infraorbital rash for the last 1 week, worse in the last 2 days. Patient denies fever, chills, dizziness, headache, change in vision, nausea, vomiting, neck pain, abdominal pain, sore throat, traumatic injury or chest pain and shortness of breath Home Medications: Previous Rx's Medication Instructions Recorded Last Taken Type Polymyxin B Sulf/Trimethoprim 1 drop OP Q4H #1 bottle 04/13/13 Unknown Rx [Polytrim Eye Drops 51677jwufp/0.1%] Fluconazole [Diflucan] 150 mg PO ONCE #3 tablet 04/26/13 Unknown Rx Azithromycin(Nf)1% Ophth Soln 1 drops INTRAOCULA QDAY #1 bottle 10/14/13 Unknown Rx [Azasite 1% Ophth Soln] Gentamicin 0.3% Ophth Soln 1 drops OP Q4H #1 bottle 04/11/15 Unknown Rx Ciprofloxacin HCl [Ciprofloxacin 500 mg PO BID #6 tablet 01/18/17 Unknown Rx TAB] Hydrocortisone [Anucort-HC SUPPOS] 25 mg RC BID #30 supp.rect 01/18/17 Unknown Rx Promethazine [Phenergan TAB] 25 mg PO Q8HR PRN #12 tab 07/23/17 Unknown Rx Sulfamethoxazole/Trimethoprim 1 each PO BID 3 Days #6 tablet 07/23/17 Unknown Rx [Bactrim DS TAB] Phenazopyridine [Pyridium] 200 mg PO BID #6 tab 02/03/18 Unknown Rx Sulfamethoxazole/Trimethoprim 1 each PO BID #14 tablet 02/03/18 Unknown Rx [Bactrim DS TAB] Nitrofurantoin Izard/M-Cryst 100 mg PO Q12HR 7 Days #14 capsule 12/12/18 Unknown Rx [Macrobid CAP] Vit-Fe Fumar-FA [ 1 tab PO QDAY 30 Days #30 tablet 12/12/18 Unknown Rx Vitamin] Benzoyl Peroxide [Acne Medication] 1 applicator TP Q12H #30 ml 01/13/19 Unknown Rx DOXYCYCLINE Hyclate [Vibramycin 100 mg PO Q12HR #28 capsule 01/13/19 Unknown Rx CAP] Ibuprofen [Motrin] 400 mg PO Q8H PRN #20 tablet 01/13/19 Unknown Rx Allergies/Adverse Reactions: Allergies Allergy/AdvReac Type Severity Reaction Status Date / Time Penicillins Allergy Rash Verified 12/12/18 16:34 ED Review of Systems ROS: Stated complaint: BOIL ON UNDER (L) EYE Other details as noted in HPI Constitutional: denies: chills, fever Eyes: denies: eye pain, eye discharge, vision change ENT: other (right infraorbital swollen fluctuant painful rash with mul;tiple facial acne and follicular rashes). denies: ear pain, throat pain Respiratory: denies: cough, shortness of breath, wheezing Cardiovascular: denies: chest pain, palpitations Endocrine: no symptoms reported. denies: excessive sweating, flushing, increased hunger, increased thirst, increased urine Gastrointestinal: denies: abdominal pain, nausea, diarrhea Genitourinary: denies: urgency, dysuria, discharge Musculoskeletal: denies: back pain, joint swelling, arthralgia Skin: rash (erythematous maculoapular fluctuant rash on right infraorbital area with multiple acne rashes), change in color. denies: lesions Neurological: denies: headache, weakness, paresthesias Psychiatric: denies: anxiety, depression Hematological/Lymphatic: denies: easy bleeding, easy bruising ED Past Medical Hx - Past Medical History Previous Medical History?: No - Surgical History Past Surgical History?: No - Social History Smoking Status: Never Smoker Substance Use Type: None - Medications Home Medications: Home Medications Medication Instructions Recorded Confirmed Last Taken Type Polymyxin B Sulf/Trimethoprim 1 drop OP Q4H #1 bottle 04/13/13 Unknown Rx [Polytrim Eye Drops 57614mayzg/0.1%] Fluconazole [Diflucan] 150 mg PO ONCE #3 tablet 04/26/13 Unknown Rx Azithromycin(Nf)1% Ophth Soln 1 drops INTRAOCULA QDAY #1 bottle 10/14/13 Unknown Rx [Azasite 1% Ophth Soln] Gentamicin 0.3% Ophth Soln 1 drops OP Q4H #1 bottle 04/11/15 Unknown Rx Ciprofloxacin HCl [Ciprofloxacin 500 mg PO BID #6 tablet 01/18/17 Unknown Rx TAB] Hydrocortisone [Anucort-HC SUPPOS] 25 mg RC BID #30 supp.rect 01/18/17 Unknown Rx Promethazine [Phenergan TAB] 25 mg PO Q8HR PRN #12 tab 07/23/17 Unknown Rx Sulfamethoxazole/Trimethoprim 1 each PO BID 3 Days #6 tablet 07/23/17 Unknown Rx [Bactrim DS TAB] Phenazopyridine [Pyridium] 200 mg PO BID #6 tab 02/03/18 Unknown Rx Sulfamethoxazole/Trimethoprim 1 each PO BID #14 tablet 02/03/18 Unknown Rx [Bactrim DS TAB] Nitrofurantoin Izard/M-Cryst 100 mg PO Q12HR 7 Days #14 capsule 12/12/18 Unknown Rx [Macrobid CAP] Vit-Fe Fumar-FA [ 1 tab PO QDAY 30 Days #30 tablet 12/12/18 Unknown Rx Vitamin] Benzoyl Peroxide [Acne Medication] 1 applicator TP Q12H #30 ml 01/13/19 Unknown Rx DOXYCYCLINE Hyclate [Vibramycin 100 mg PO Q12HR #28 capsule 01/13/19 Unknown Rx CAP] Ibuprofen [Motrin] 400 mg PO Q8H PRN #20 tablet 01/13/19 Unknown Rx ED Physical Exam - General Limitations: No Limitations General appearance: alert, in no apparent distress - Head Head exam: Present: atraumatic, normocephalic - Eye Eye exam: Present: normal appearance, PERRL, EOMI Pupils: Present: normal accommodation - ENT ENT exam: Present: normal exam, normal orophraynx, mucous membranes moist, TM's normal bilaterally, normal external ear exam, other (Right infraorbital swollen mildly erythematous rash with fluctuance) - Neck Neck exam: Present: normal inspection, full ROM. Absent: tenderness, meningismus, lymphadenopathy, thyromegaly - Respiratory Respiratory exam: Present: normal lung sounds bilaterally. Absent: respiratory distress, wheezes, chest wall tenderness, decreased breath sounds, prolonged expiratory - Cardiovascular Cardiovascular Exam: Present: normal rhythm, tachycardia, normal heart sounds. Absent: systolic murmur, diastolic murmur, rubs, gallop - GI/Abdominal GI/Abdominal exam: Present: soft, normal bowel sounds. Absent: distended, tenderness, rebound, hyperactive bowel sounds, hypoactive bowel sounds - Rectal Rectal exam: Present: deferred - Extremities Exam Extremities exam: Present: normal inspection, full ROM, normal capillary refill - Back Exam Back exam: Present: normal inspection, full ROM. Absent: tenderness, CVA tenderness (R), CVA tenderness (L), muscle spasm, paraspinal tenderness - Neurological Exam Neurological exam: Present: alert, oriented X3, CN II-XII intact, normal gait, reflexes normal - Psychiatric Psychiatric exam: Present: normal affect, normal mood - Skin Skin exam: Present: warm, dry, intact, normal color, rash (Right infraorbital fluctuant mildy erythematous rash; multiple acne rashes on face diffusely) ED Course Vital Signs 01/13/19 19:40 Temperature 98.0 F Pulse Rate 116 H Respiratory 18 Rate Blood Pressure 119/84 O2 Sat by Pulse 100 Oximetry - Reevaluation(s) Reevaluation #1: 01/13/19 23:15 Patient is alert and oriented 3 and is not in distress, but is tachycardic in triage. Patient was treated for pain and given oral antibiotics and 80. The rash on the infra orbital area was drained with needle aspiration and area dressed appropriately after cleaning it. Patient tolerated the procedure well and was discharged home on antibiotics and pain medications and advised to follow-up with her primary care physician in 5-7 days for reevaluation or return to the ED immediately if symptoms get worse. - I & D Right Anterior Face Type of Procedure: Simple Site: right infraorbital area Blade Size: Needle aspiration I & D Procedure: betadine prep Progress: Patient tolerated procedure well ED Medical Decision Making - Medical Decision Making Patient is alert and oriented 3 and is not in distress, but is tachycardic in triage. Patient was treated for pain and given oral antibiotics and 80. The rash on the infra orbital area was drained with needle aspiration and area dressed appropriately after cleaning it. Patient tolerated the procedure well and was discharged home on antibiotics and pain medications and advised to follow-up with her primary care physician in 5-7 days for reevaluation or return to the ED immediately if symptoms get worse. - Differential Diagnosis acute folliculitis; Acne vulgaris; facial cellulitis Critical care attestation.: If time is entered above; I have spent that time in minutes in the direct care of this critically ill patient, excluding procedure time. ED Disposition Clinical Impression: Acne erythematosa, Acute folliculitis Disposition: TO HOME OR SELFCARE Is pt being admited?: No Does the pt Need Aspirin: No Condition: Stable Instructions: Folliculitis (ED), Acne (ED) Additional Instructions: Take medications with food, drink plenty of fluids and follow-up with your primary care physician in 7-10 days for reevaluation. Return to the ED immediately if symptoms get worse. Prescriptions: Benzoyl Peroxide [Acne Medication] 1 applicator TP Q12H #30 ml Ibuprofen [Motrin] 400 mg PO Q8H PRN #20 tablet PRN Reason: Pain , Severe (7-10) DOXYCYCLINE Hyclate [Vibramycin CAP] 100 mg PO Q12HR #28 capsule Referrals: CHAD PEARL MD [Primary Care Provider] - 3-5 Days [facility] [Outside] - 3-5 Days Time of Disposition: 23:05 Print Language: GREENLANDIC
[2019-01-13 23:34] VITALS: BP 125/83
== END 2019-01-13 23:40 | disposition home or self-care (01) ==
LOC: ED 18:32
DX: L70.0 Acne vulgaris (principal); L73.9 Follicular disorder, unspecified; Z88.0 Allergy status to penicillin; Z79.1 Long term (current) use of non-steroidal anti-inflammatories (NSAID); Z79.899 Other long term (current) drug therapy
CPT/HCPCS: Q0162

== ENCOUNTER 2019-08-09 09:37 | Outpatient (CLI) | payer MEDICAID ==
[2019-08-09 12:24] VITALS: BP 121/58
--- NOTE | 2019-08-09 13:47 | Ultrasound Report ---
ULTRASOUND BIOPHYSICAL PROFILE INDICATION: no movement. COMPARISON: None available. FINDINGS: heart rate is 152 beats per minute. breathing movement = 2 Gross body movement = 2 tone = 2 Qualitative amniotic fluid volume = 2 IMPRESSION: biophysical profile = 01/14 Signer Name: Devaughn Alvarez Jr, MD Signed: 08/09/2019 1:43 PM Workstation Name: [id number]
== END 2019-08-09 12:33 | disposition home or self-care (01) ==
LOC: TRG 09:37
PROVIDERS: ATTEND Obstetrics & Gynecology
DX: O36.4XX0 Maternal care for intrauterine death, not applicable or unspecified (principal); Z3A.40 40 weeks gestation of pregnancy
CPT/HCPCS: 59025; 76819

== ENCOUNTER 2019-08-21 14:04 | Emergency (ER) | payer MEDICAID ==
[2019-08-21 14:12] VITALS: BP 160/99
[2019-08-21 14:58] LABS: Basophils % (Auto) 0.1 % (0.0-1.8); Eosinophils # (Auto) 0.3 K/mm3 (0.0-0.4); Hematocrit 23.4 % (30.3-42.9); Hemoglobin 7.9 gm/dl (10.1-14.3); Lymphocytes # (Auto) 2.4 K/mm3 (1.2-5.4); Lymphocytes % (Auto) 24.1 % (13.4-35.0); Mean Corpuscular HGB Conc 34 % (30-34); Mean Corpuscular Volume 87 fl (79-97); Monocytes # (Auto) 0.8 K/mm3 (0.0-0.8); Monocytes % (Auto) 7.6 % (0.0-7.3); Platelet Count 308 K/mm3 (140-440); Red Blood Count 2.68 M/mm3 (3.65-5.03); Red Cell Distribution Width 14.5 % (13.2-15.2)
--- NOTE | 2019-08-21 16:15 | Emergency Department Report ---
ED Female HPI - General Chief complaint: Vaginal Bleeding Stated complaint: BLEEDING HEAVY, HAD BABY 6 DAYS AGO Time Seen by Provider: 08/21/19 14:33 Source: patient Mode of arrival: Ambulatory Limitations: No Limitations - History of Present Illness Initial comments: Richa Smith is a 24-year-old female who presents 6 days status post vaginal delivery for vaginal bleeding. She has had vaginal bleeding since the delivery. She had a large clot expelled today. She denies chest pain shortness of breath or weakness. I reviewed electronic record, patient was discharged with diagnosis of asymptomatic anemia following acute blood loss due to uncomplicated vaginal delivery Complaint: vaginal bleeding -: Gradual (6), days(s) Severity: moderate Consistency: constant Improves with: none Worsens with: none Are you Now?: No Associated Symptoms: denies other symptoms - Related Data Previous Rx's Medication Instructions Recorded Last Taken Type Vit-Fe Fumar-FA [ 1 tab PO QDAY 30 Days #30 tablet 12/12/18 08/12/19 07:00 Rx Vitamin] Docusate Sodium [Colace] 100 mg PO BID PRN #60 capsule 08/16/19 Unknown Rx Ferrous Sulfate [Feosol 325 MG tab] 325 mg PO BID #60 tablet 08/16/19 Unknown Rx Allergies Allergy/AdvReac Type Severity Reaction Status Date / Time Penicillins Allergy Rash Verified 12/12/18 16:34 ED Review of Systems ROS: Stated complaint: BLEEDING HEAVY, HAD BABY 6 DAYS AGO Other details as noted in HPI Comment: All other systems reviewed and negative Constitutional: denies: fever, malaise Respiratory: denies: cough Cardiovascular: denies: chest pain ED Past Medical Hx - Past Medical History Previous Medical History?: Yes Hx Hypertension: No Hx Heart Attack/AMI: No Hx Congestive Heart Failure: No Hx Diabetes: No Hx Deep Vein Thrombosis: No Hx Liver Disease: No Hx Renal Disease: No Hx Sickle Cell Disease: No Hx Seizures: No Hx Asthma: No Hx COPD: No Hx HIV: No - Surgical History Hx Pacemaker: No Hx Internal Defibrillator: No - Social History Smoking Status: Never Smoker - Medications Home Medications: Home Medications Medication Instructions Recorded Confirmed Last Taken Type Vit-Fe Fumar-FA [ 1 tab PO QDAY 30 Days #30 tablet 12/12/18 08/13/19 08/12/19 07:00 Rx Vitamin] Docusate Sodium [Colace] 100 mg PO BID PRN #60 capsule 08/16/19 Unknown Rx Ferrous Sulfate [Feosol 325 MG tab] 325 mg PO BID #60 tablet 08/16/19 Unknown Rx ED Physical Exam - General Limitations: No Limitations General appearance: alert, in no apparent distress - Head Head exam: Present: atraumatic, normocephalic - Eye Eye exam: Present: normal appearance - ENT ENT exam: Present: mucous membranes moist - Neck Neck exam: Present: normal inspection, full ROM - Respiratory Respiratory exam: Present: normal lung sounds bilaterally. Absent: respiratory distress, wheezes, rales, rhonchi - Cardiovascular Cardiovascular Exam: Present: regular rate, normal rhythm, normal heart sounds. Absent: systolic murmur, diastolic murmur, rubs, gallop - GI/Abdominal GI/Abdominal exam: Present: soft, normal bowel sounds. Absent: distended, tenderness, guarding, rebound - Extremities Exam Extremities exam: Present: normal inspection - Neurological Exam Neurological exam: Present: alert, oriented X3 - Psychiatric Psychiatric exam: Present: normal affect, normal mood - Skin Skin exam: Present: warm, dry, intact, normal color. Absent: rash ED Course Vital Signs 08/21/19 14:11 Temperature 98.0 F Pulse Rate 102 H Respiratory 15 Rate Blood Pressure 160/99 [Right] O2 Sat by Pulse 100 Oximetry ED Medical Decision Making - Lab Data Result diagrams: 08/21/19 14:41 - Radiology Data Radiology results: report reviewed Ultrasound revealed debris at the lower uterine segment clot versus retained products measuring 2.8 cm at largest diameter - Medical Decision Making 1. Vaginal bleeding , H&H at baseline, ultrasound revealed a 3 cm of hypoechoic material most likely due to small clot. I gave patient return pr ecautions. She understands to follow-up with her [employer] as appointment. She understands return to the emergency department for any symptoms such as lightheadedness, fainting, shortness of breath. 2. Average blood pressure reading suspected at triage, repeat blood pressure 119/80, 121/73 Critical care attestation.: If time is entered above; I have spent that time in minutes in the direct care of this critically ill patient, excluding procedure time. ED Disposition Clinical Impression: Vaginal bleeding, Vaginal delivery Disposition: - TO HOME OR SELFCARE Is pt being admited?: No Does the pt Need Aspirin: No Condition: Stable Additional Instructions: Please return to the emergency department if you develop worsening bleeding, shortness of breath lightheadedness or severe pain.
--- NOTE | 2019-08-21 16:16 | Ultrasound Report ---
Pelvic ultrasound transvaginal. HISTORY: bleeding. FINDINGS: The uterus measures 11.7 x 7.1 x 9.4 cm. Avascular hypoechoic material is seen at the cervi x measuring 2.8 x 1.2 x 2.1 cm. The ovaries are nonvisualized. Negative for adnexal mass or fluid. IMPRESSION: 1. uterus. 2. Debris lower uterine segment. Clot versus retained products. Signer Name: Oleksandr Borja MD Signed: 08/21/2019 4:12 PM Workstation Name: [id number]
== END 2019-08-21 17:00 | disposition home or self-care (01) ==
LOC: ED 14:04
DX: O72.1 Other immediate postpartum hemorrhage (principal); Z79.899 Other long term (current) drug therapy; Z88.0 Allergy status to penicillin
CPT/HCPCS: 36415; 76830; 85025; 99283

== ENCOUNTER 2020-10-06 17:56 | Emergency (ER) | payer MEDICAID | END 2020-10-06 18:30 | disposition left against medical advice (07) | LOC: ED 17:56 | DX: N92.6 Irregular menstruation, unspecified (principal); Z53.21 Procedure and treatment not carried out due to patient leaving prior to being seen by health care provider ==

== ENCOUNTER 2020-12-09 19:59 | Emergency (ER) | payer MEDICAID | END 2020-12-10 01:29 | disposition left against medical advice (07) | LOC: ED 19:59 ==

== ENCOUNTER 2021-10-28 15:43 | Emergency (ER) | payer MEDICAID ==
--- NOTE | 2021-10-28 18:58 | XRay Report ---
RIGHT HAND, 3 VIEWS INDICATION / CLINICAL INFORMATION: right thumb pain. COMPARISON: None available. FINDINGS: The right thumb is normal. No fracture, dislocation, or significant degenerative change. No soft tiss ue abnormality. The remainder of the hand is unremarkable as well. IMPRESSION: Negative exam. Signer Name: Isis Alamo MD Signed: 10/28/2021 6:54 PM Workstation Name: [id number]
--- NOTE | 2021-10-28 19:17 | Emergency Department Report ---
Upper Extremity - HPI Chief Complaint: Extremity Injury, Upper Stated Complaint: THUMB SWOLLEN/NUMB Upper Extremity: Right Thumb Occurred When: >5 Days Severity: mild Symptoms: Yes Pain with Movement, Yes Swelling, No Deformity, No Limited Range of Movement, No Numbness, No Weakness, No Bruising/Ecchymosis, No Laceration or Abrasion Other History: 26-year-old female presents to the ED complaining right pain. Patient states that she has right thumb pain x1 week and she noticed some edema. Patient states that she is unaware of any trauma. No erythema noted. No ob vious distracting injury noted. Patient is alert and oriented. No acute distress noted. Denies any numbness or tingling. Patient is alert and oriented x3. ED Review of Systems ROS: Stated complaint: THUMB SWOLLEN/NUMB Other details as noted in HPI Constitutional: denies: chills, fever Eyes: denies: eye pain, eye discharge, vision change ENT: denies: ear pain, throat pain Respiratory: denies: cough, shortness of breath, wheezing Cardiovascular: denies: chest pain, palpitations Endocrine: no symptoms reported Gastrointestinal: denies: abdominal pain, nausea, diarrhea Genitourinary: denies: urgency, dysuria, discharge Musculoskeletal: joint swelling. denies: back pain, arthralgia Skin: denies: rash, lesions Neurological: denies: headache, weakness, paresthesias Psychiatric: denies: anxiety, depression Hematological/Lymphatic: denies: easy bleeding, easy bruising ED Past Medical Hx - Past Medical History Previous Medical History?: No Hx Hypertension: No Hx Heart Attack/AMI: No Hx Congestive Heart Failure: No Hx Diabetes: No Hx Deep Vein Thrombosis: No Hx Liver Disease: No Hx Renal Disease: No Hx Sickle Cell Disease: No Hx Seizures: No Hx Asthma: No Hx COPD: No Hx HIV: No - Surgical History Past Surgical History?: No Hx Pacemaker: No Hx Internal Defibrillator: No - Social History Smoking Status: Never Smoker - Medications Home Medications: Home Medications Medication Instructions Recorded Confirmed Last Taken Type Vit-Fe Fumar-FA [ 1 tab PO QDAY 30 Days #30 tablet 12/12/18 08/13/19 08/12/19 07:00 Rx Vitamin] Docusate Sodium [Colace] 100 mg PO BID PRN #60 capsule 08/16/19 Unknown Rx Ferrous Sulfate [Feosol 325 MG tab] 325 mg PO BID #60 tablet 08/16/19 Unknown Rx Ibuprofen [Motrin] 800 mg PO Q8HR PRN 15 Days #30 10/28/21 Unknown Rx tablet Sulfamethoxazole/Trimethoprim 1 each PO BID 10 Days #20 tab 10/28/21 Unknown Rx [Bactrim DS TAB] Upper Extremity Exam - Exam General: Vital signs noted. No distress. Alert and acting appropriately. Head and Torso: No HEENT Abnormality, No Neck Tenderness, No Chest/Lungs Abnormality, No Abdominal Tenderness, No Back Tenderness Shoulder Exam: Yes Normal Range of Motion in Shoulder, No Shoulder Tenderness, No Clavicle Tenderness, No Shoulder Deformity, No AC Joint Tenderness Arm Exam: No Arm/Humerus Tenderness, No Arm Deformity Elbow: No Elbow Tenderness, No Normal Range of Motion in Elbow, No Elbow Deformity Forearm: No Forearm Tenderness, No Forearm Deformity, No Pain with Pronation, No Pain with Supination Wrist: Yes Normal ROM in Wrist, No Wrist Tenderness, No Wrist Deformity, No Snuffbox Tenderness, No Pain with Axial Thumb Compression Hand: Yes Digit Tenderness (right thumb), Yes Normal ROM in Digit(s), No Hand Tenderness, No Hand Deformity, No Digit(s) Deformity, No Tendon Dysfunction CMS Exam: No Broken Skin, No Normal Distal Pulses, No Normal Capillary Refill, No Normal Distal Sensation ED Course Vital Signs 10/28/21 18:11 Temperature 98.1 F Pulse Rate 61 Respiratory 20 Rate Blood Pressure 134/93 [Right] O2 Sat by Pulse 100 Oximetry ED Medical Decision Making - Medical Decision Making 26-year-old female presents to the ED complaining right pain. Patient states that she has right thumb pain x1 week and she noticed some edema. Patient states that she is unaware of any trauma. No erythema noted. No obvious distracting injury noted. Patient is alert and oriented. No acute distress noted. Denies any numbness or tingling. Patient is alert and oriented x3. Physical examination patient has mild edema noted to the right thumb. X-ray of the right hand showed no abnormality Rechecked the patient is resting quietly quietly and comfortable and feeling better. I discussed the results of diagnostic study, my clinical impression and the plan for further treatment with the patient. Patient agrees with plan and discharge at this present time. All question addressed. I have given the patient instruction regarding a diagnosis ,expectation ,follow- up and return precaution. I explained to the patient that emergent condition may arise and to return to the ED for new worsen and any new persisting condition. I have explained the importance of following up with the primary care physician or referral physician listed below has instructed. The patient verbalized understanding of discharge instruction. Critical care attestation.: If time is entered above; I have spent that time in minutes in the direct care of this critically ill patient, excluding procedure time. ED Disposition Clinical Impression: Cellulitis Qualifiers: Site of cellulitis: extremity Site of cellulitis of extremity: finger Laterality: right Qualified Code(s): L03.011 - Cellulitis of right finger Disposition: 01 HOME / SELF CARE / HOMELESS Is pt being admited?: No Does the pt Need Aspirin: No Condition: Stable Instructions: Cellulitis, Adult Additional Instructions: Take medication as prescribed Return the ED for any worsening symptom Prescriptions: Sulfamethoxazole/Trimethoprim [Bactrim DS TAB] 1 each PO BID 10 Days #20 tab Ibuprofen [Motrin] 800 mg PO Q8HR PRN 15 Days #30 tablet PRN Reason: Pain, Mild (1-3) Referrals: [facility] [Provider Group] - 3-5 Days Forms: Work/School Release Form(ED) Time of Disposition: 19:21
[2021-10-28 20:54] VITALS: BP 114/69
== END 2021-10-28 20:54 | disposition home or self-care (01) ==
LOC: ED 15:43
DX: L03.011 Cellulitis of right finger (principal)
CPT/HCPCS: 99283